=== PATIENT | female | born 1970 | race Caucasian/White ===

== ENCOUNTER 2017-02-26 09:35 | Observation (INO) | payer BC ==
--- NOTE | ~2017-02-26 | EHP ---
ER History and Physical [address] [place]. [address] NAME: XOCHITL HALE : 74 STATUS : ADM Brie PAT#: [id number] AGE: 46 ADM/REG DATE : 02/26/17 MR#: [id number] REPORT SERV DATE: 02/27/17 DICTATED BY: JANIYA CHRISTIAN DATE: 02/26/17 REPORT STATUS : Draft TRANSCRIBED BY: MODL DATE: 02/26/17 CHIEF COMPLAINT: Stroke-like symptoms. HISTORY OF PRESENT ILLNESS: The patient is a 46-year-old white female, who is here for abdominal pain with diagnosis of colitis with plans for admission, who was seen by earlier provider in the day. She has actually been seen by the Hospitalist Service, now has been fully admitted. When the nurse went to take her to her room, the patient was noted to be hyperventilating, unable to speak, had slurred speech, and left-sided facial droop. I was summoned to evaluate the patient. I have no baseline for her prior exam except for what is in the chart, which is notable for no neurologic deficits. Per the nurse, the patient has been fine up until this point. On exam, the patient had noted full left-sided weakness in both upper and lower extremities, left-sided facial droop, and had slurred speech. When distracted, her left arm did have resistance, but to extension and flexion. I immediately called a code stroke, although these symptoms does not seem to fit within an acute CVA. Once the code stroke was called, Dr. Melgoza, Neurology Service returned my phone call. We discussed this. My suspicion is that this is anxiety and psychogenic; however, we went ahead and proceeded with CVA with workup. The patient was transferred. A CTA of the brain as well as a CTA of the head and CTA of the neck were done, these were all unremarkable. Dr. Melgoza came and saw the patient, and agree that her exam is consistent with likely psychogenic behavior. She ordered an MRI on the time of this dictation. The patient had an MRI. The MRI is pending. Given the fact that she is admitted with colitis, the exam is not consistent with acute CVA and tPA was not given per Neurology's recommendations. Once the MRI returns, the patient will be transferred to floor and admitted. As above, neurology has seen the patient, who is following along. SANIYA/SHARIFA Janiya Chrsitian, DO / [id number] CC: MD Anushka Ambrose
--- NOTE | ~2017-02-26 | HP ---
History And Physical [facility] [id number] [place]. [address] NAME: XOCHITL HALE : 74 STATUS : ADM Brie PAT#: [id number] AGE: 46 ADM/REG DATE : 02/26/17 MR#: [id number] REPORT SERV DATE: 02/26/17 DICTATED BY: ALIYAH HERRERA DATE: 02/26/17 REPORT STATUS : Draft TRANSCRIBED BY: MODL DATE: 02/26/17 DATE OF ADMISSION: 02/26/2017 REASON FOR ADMISSION: Colitis. HISTORY OF PRESENT ILLNESS: This is a 46-year-old white female, who presents to the emergency room with increasing abdominal pain. It was causing doubling over. She does have a history of chronic pain due to disc disease in her neck. She had diarrhea for four or five days, began having lower abdominal pain yesterday and then followed by pure blood in her stool. She was noting bright red blood per rectum. There is a strong family history of colon cancer in her family. Her mother of colon cancer in her 50s. Insurance company sort of refused her to have a colonoscopy because she is not 52, Dr. Barragan, her primary care doctor in [place], has not pursued the avenue of additional risk factors. She previously saw Dr. Leblanc for chronic pain who did fluoroscopic injections in her neck. She is on the following medication: Albuterol inhaler as needed for shortness of breath and seasonal allergies, Goody's powder as needed for pain, Soma 350 mg p.o. at bedtime, diclofenac 50 mg p.o. b.i.d. for arthritic pain in her neck, estradiol 1 mg p.o. daily, meclizine 12.5 mg p.o. daily, phentermine 18.75 mg p.o. daily, Imitrex 100 mg p.o. p.r.n. migraine headaches and she takes less than one a month, trazodone 300 mg p.o. at bedtime. PAST MEDICAL HISTORY: Continued chronic neck pain in the past. She has not been hospitalized here at [facility] in the past. SOCIAL HISTORY: She is to her for 18 years, four children who are alive and well. She smokes a pack of cigarettes a day. She has raised in [facility], but does not go to latter day now. No alcohol or tobacco. She will smoke marijuana if offered. She previously worked at [employer] in [place], now works at [employer], a very physical job. FAMILY HISTORY: Her three brothers and one sister; one brother diabetes, another is . Her mother of colon cancer in her 50s. Her father had diabetes and all his uncles and brothers had diabetes as well. REVIEW OF SYSTEMS: Occasional headache, occasional migraine, stiff neck from the degenerative disk disease. No fever, chills, night sweats, melena, hematemesis, nausea, vomiting, or diarrhea. She did have a weight of 218 pounds and was told by Dr. Barragan that she need to lose weight. Therefore, she is taking the phentermine from Dr. Barragan to try to help her lose weight. She has not tried Pepto-Bismol or other medications for her colon. She says Pepto-Bismol does not work for her. She claims allergy to morphine that causes itching. History And Physical [address] [place]. [address] NAME: XOCHITL HALE : 74 STATUS : ADM Brie PAT#: [id number] AGE: 46 ADM/REG DATE : 02/26/17 MR#: [id number] REPORT SERV DATE: 02/26/17 DICTATED BY: ALIYAH HERRERA DATE: 02/26/17 REPORT STATUS : Draft TRANSCRIBED BY: SHARIFA DATE: 02/26/17 Her main complaint now is actually abdominal pain, but she is concerned about the bright red blood per rectum given her mother's history as well. The remainder of the review of systems is negative. PHYSICAL EXAMINATION: GENERAL: Young, mildly obese white female, in no acute distress. VITAL SIGNS: Blood pressure initially 139/91 with a heart rate of 61, respiratory rate 20, oxygen saturation 99%, temperature 98.3. HEENT: EOMI. Sclerae clear. Conjunctivae pink. NECK: No bruit without any JVD. CHEST: Clear to A and P. HEART: Regular S1, S2 without murmur, gallop, or click. BREASTS: Grossly without mass. ABDOMEN: Soft, tender diffusely mostly in the pelvic area in the left lower quadrant. Bowel sounds are positive and not hyperactive. EXTREMITIES: Had no edema. Distal pulses are intact at the dorsalis pedis and posterior tibial. NEUROLOGIC: She withdraws to plantar stimulation. Grab Hooker is equal and symmetric bilaterally. Coordination intact. She has no tremor. She is symmetric and equal neurologically bilaterally. SKIN: Without rash, ecchymosis, or bruising. LABORATORY DATA: The urinalysis was obtained that showed a specific gravity of 1.021, 7 epis, 4 whites, and 21 red blood cells per high-powered field. Urobilinogen was 2. CT scan of the abdomen and pelvis, noncontrast, was showing diffuse wall thickening involving the distal two-thirds of the descending colon, proximal sigmoid colon with surrounding edema consistent with localized colitis. Her BUN was 6, her creatinine was 7.5, glucose is 114. Otherwise, the CMP was normal with normal lipase. Her white count was 8.7, hemoglobin 16.6, hematocrit 47.8, platelets are 168,000. ASSESSMENT: 1. Acute abdominal pain. 2. Colitis. 3. Diarrhea secondary to colitis. 4. Vomiting secondary to generalized abdominal pain above. 5. History of chronic pain. She is tolerating the nonsteroidals. I am going to keep her on nonsteroidals for the anti-inflammatory property of them given that she says she cannot take prednisone because it makes her inflammation worse in her body and was told this by Dr. Leblanc. 6. Family history of colon cancer. She needs colonoscopy at any rate, but we will have to wait several weeks until the colitis is resolved to have a colonoscopy done and would have double benefit for her. 7. History of dizziness, on Antivert. 8. Obesity. She is losing weight now. History And Physical [address] [address] NAME: XOCHITL HALE : 74 STATUS : ADM Brie PAT#: [id number] AGE: 46 ADM/REG DATE : 02/26/17 MR#: [id number] REPORT SERV DATE: 02/26/17 DICTATED BY: ALIYAH HERRERA DATE: 02/26/17 REPORT STATUS : Draft TRANSCRIBED BY: MODEstefania DATE: 02/26/17 9. History of inflammation of her whole body. We will check sedimentation rate and CRP. PLAN: If the sedimentation rate and CRP are normal, perhaps Pepto-Bismol in volume sufficient to slow the diarrhea would be of benefit for her, I will change her IV metronidazole and IV Levaquin given to her by Dr. Guerra to oral. I will check stool cultures, add dicyclomine for abdominal cramping, and observe over the next 24 hours to see if the hemoglobin and hematocrit remain stable. DB/MODL Aliyah Herrera M.D. / [id number] CC: NATA BARRAGAN MD
--- NOTE | ~2017-02-26 | DS ---
Discharge Summary [facility] [address] [place] [address] NAME: XOCHITL ARVIZU : 74 STATUS : DIS Brie PAT#: [id number] AGE: 46 ADM/REG DATE : 02/26/17 MR#: [id number] REPORT SERV DATE: 04/15/17 DICTATED BY: RO RAPP DATE: 04/14/17 REPORT STATUS : Draft TRANSCRIBED BY: SHARIFA DATE: 04/14/17 ADMISSION DATE: 02/26/2017 DISCHARGE DATE: 02/27/2017 HISTORY: Ms. Arvizu is a 46-year-old female who presented to the emergency room with a complaint of increasing abdominal pain. For further details, please refer to H and P dictated by Dr. De Guzman on 02/26/2017. HOSPITAL COURSE: Upon presentation to the emergency room, given her complaint of abdominal pain, a CT scan of the abdomen and pelvis was obtained showing diffuse wall thickening involving the distant two third of the descending colon, proximal colon with surrounding edema consistent with localized colitis. GI was subsequently consulted. For further details, please refer to consultation note dictated by Dr. Foster on 02/27/2017. I saw the patient on 02/27/2017, and per GI evaluation, there was no need for urgent colonoscopy inpatient and plan was for a colonoscopy to be performed outpatient. I saw the patient on 02/27/2017; however, the patient subsequently signed out against medical advice, and I did not evaluate the patient again. DOMINGUEZ/SHARIFA Ro Rapp MD / [id number] CC: MD Anushka Ambrose
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
--- NOTE | ~2017-02-26 | CN ---
Consultation Report [facility] [address] [place]. [address] NAME: XOCHITL ARVIZU : 74 STATUS : ADM Brie PAT#: [id number] AGE: 46 ADM/REG DATE : 02/26/17 MR#: [id number] REPORT SERV DATE: 02/27/17 DICTATED BY: ROBBI FOSTER DATE: 02/27/17 REPORT STATUS : Draft TRANSCRIBED BY: MODL DATE: 02/27/17 DATE OF CONSULTATION: 02/27/2017 REASON FOR CONSULTATION: Rectal bleeding, colitis. HISTORY OF PRESENT ILLNESS: Ms. Arvizu is a 46-year-old white female, with history of chronic pain and family history of colon cancer, who presented to [facility] with abdominal pain and rectal bleeding. She reports, she passed significant amount of blood. Since she has been in the hospital, she has not had any rectal bleeding, although reports some mucousy-red discharge, has not had a bowel movement. No nausea or vomiting. No previous endoscopy. Does have a family history of colon cancer with first-degree relatives in their 50s to 60s. CBC was normal. CT scan showed some thickening of the distal transverse to sigmoid colon suggestive of colitis and she has been empirically started on Levaquin and Flagyl. PAST MEDICAL HISTORY: Chronic pain secondary to arthritis, joint disease. PAST SURGICAL HISTORY: No surgical history. FAMILY HISTORY: Colon cancer. SOCIAL HISTORY: Tobacco use. Smokes a pack per day. Denies any alcohol use. Admits to occasional marijuana use. MEDICATIONS: Reviewed. ALLERGIES: REVIEWED. PHYSICAL EXAMINATION: VITAL SIGNS: The patient is afebrile. Her vital signs are stable. GENERAL: The patient is awake, alert, oriented x3. Well developed, well nourished, in mild distress. She is tearful at this time. Seems to be somewhat anxious. HEENT: Atraumatic, normocephalic. Anicteric. Mucous membranes moist. Poor dentition. CARDIAC: S1, S2. CHEST: Clear. ABDOMEN: Soft, tender to palpation, mostly in the left abdomen without rebound, voluntary guarding. Bowel sounds normoactive. LABORATORY DATA: Reveal a normal CBC. CMP was reviewed. CT scan as dictated above. IMPRESSION AND PLAN: Left-sided colitis, uncomplicated. Continue Levaquin and Flagyl and supportive care with IV fluids. We will do a colonoscopy as an outpatient in six to eight weeks. Okay to advance diet to GI bland diet. Questions and concerns were addressed. Consultation Report [place] [address] [place]. [address] NAME: XOCHITL ARVIZU : 74 STATUS : ADM Brie PAT#: [id number] AGE: 46 ADM/REG DATE : 02/26/17 MR#: [id number] REPORT SERV DATE: 02/27/17 DICTATED BY: ROBBI FOSTER DATE: 02/27/17 REPORT STATUS : Draft TRANSCRIBED BY: MODL DATE: 02/27/17 CS/MODEstefania Robbi Foster MD / [id number] CC: MD Anushka Ambrose
[2017-02-26 08:38] LABS: BASOPHILS 0.2 %; BASOPHILS ABSOLUTE 0.02 10/3/uL (0.0-0.16); EOSINOPHILS 0.5 %; EOSINOPHILS ABSOLUTE 0.04 10/3/uL (0.0-0.53); ER CBC TAT 0 Hrs 05 Mins; HEMOGLOBIN 16.6 g/dL (12.0-16.0); IMMATURE GRANULOCYTES 0.2 %; IMMATURE GRANULOCYTES ABSOLUTE 0.02 10/3/uL (0.0-0.11); LYMPHOCYTES 25.7 %; LYMPHOCYTES ABSOLUTE 2.22 10/3/uL (0.67-4.30); MEAN CORPUS HGB CONC 34.7 g/dL (32.0-36.0); MEAN CORPUSCULAR HEMOGLOB 31.5 pg (26.0-34.0); MEAN CORPUSCULAR VOLUME 90.7 fL (80-100); MEAN PLATELET VOLUME 9.9 fL (9.2-13.0); MONOCYTES 5.9 %; MONOCYTES ABSOLUTE 0.51 10/3/uL (0.21-1.20); NEUTROPHILS 67.5 %; NEUTROPHILS ABSOLUTE 5.84 10/3/uL (2.02-8.40); PLATELET COUNT 168 10/3/uL (150-400); RED CELL COUNT 5.27 10/6/uL (4.0-5.6); WHITE BLOOD CELLS 8.7 10/3/uL (4.5-10.5)
[2017-02-26 08:39] LABS: HEMATOCRIT 47.8 % (36.0-48.0); MANUAL DIFF NO %
[2017-02-26 08:53] LABS: A/G RATIO 0.9 (0.7-1.9); ALBUMIN 3.7 G/DL (3.5-5.0); ALKALINE PHOSPHATASE 107 U/L (45-117); BUN (BLOOD UREA NITROGEN) 6 MG/DL (6-23); CALCIUM, SERUM 9.7 MG/DL (8.5-10.4); CHLORIDE, SERUM 105 MMOL/L (96-112); CO2 (CARBON DIOXIDE) 31 MMOL/L (24-34); CREATININE 0.75 MG/DL (0.55-1.02); GFR AFRICAN AMERICAN 112 ML/MIN (>=60); GFR NON AFRICAN AMERICAN 97 ML/MIN (>=60); GLUCOSE, SERUM 114 MG/DL (60-99); POTASSIUM, SERUM 3.6 MMOL/L (3.5-5.3); SGOT(AST) 14 U/L (5-40); SGPT(ALT) 15 U/L (5-65); SODIUM, SERUM 143 MMOL/L (135-148); TOTAL BILIRUBIN 0.5 MG/DL (0-1.2); TOTAL PROTEIN 7.7 G/DL (6.0-8.5)
[2017-02-26] MEDS ORDERED: SOMATAB PO (11:07)
[2017-02-26] MEDS ORDERED: TRAZODONE300 MG PO (11:07)
[2017-02-26] MEDS ORDERED: PHENTERMINE37.5 M1 PO (11:11)
[2017-02-26] MEDS ORDERED: ESTRACE1 MG PO (11:12)
[2017-02-26] MEDS ORDERED: VOLT50 PO (11:13)
[2017-02-26] MEDS ORDERED: MCZ125 PO (11:13)
[2017-02-26] MEDS ORDERED: IMITREX100 MG PO (11:13)
[2017-02-26] MEDS ORDERED: GOODY'S EX-STR1 EAC1 PO (11:14)
[2017-02-26] MEDS ORDERED: PROAIR HFA INH (11:15)
[2017-02-26 11:34] LABS: ASCORBIC ACID (UR NOT ORDER) NEG (NEG); BILIRUBIN, URINE NEGATIVE (NEG); ER URINALYSIS TAT 0 Hrs 10 Mins; KETONE, URINE NEGATIVE (NEG); LEUKOCYTE ESTERASE(NOT OR NEG (NEG); NITRITE (URINE) NEG (NEG); WBC (NOT ORDERED) (RFLEX) 4 (0-5)
[2017-02-26 18:45] LABS: INTERNATIONAL NORMAL RATI 1.2 UNITS (-); PARTIAL THROMBO TIME 26.7 SEC (22.5-37.2); PROTIME (NOT ORD) 14.7 SEC (12.0-14.5)
[2017-02-27 06:06] LABS: BASOPHILS 0.4 %; BASOPHILS ABSOLUTE 0.02 10/3/uL (0.0-0.16); EOSINOPHILS 1.3 %; EOSINOPHILS ABSOLUTE 0.07 10/3/uL (0.0-0.53); IMMATURE GRANULOCYTES 0.2 %; IMMATURE GRANULOCYTES ABSOLUTE 0.01 10/3/uL (0.0-0.11); LYMPHOCYTES 40.5 %; LYMPHOCYTES ABSOLUTE 2.16 10/3/uL (0.67-4.30); MEAN CORPUSCULAR HEMOGLOB 31.3 pg (26.0-34.0); MEAN CORPUSCULAR VOLUME 92.2 fL (80-100); MONOCYTES 6.8 %; MONOCYTES ABSOLUTE 0.36 10/3/uL (0.21-1.20); NEUTROPHILS 50.8 %; NEUTROPHILS ABSOLUTE 2.71 10/3/uL (2.02-8.40); PLATELET COUNT 130 10/3/uL (150-400); RBC DISTRIBUTION WIDTH 13.2 % (12.0-16.0); RED CELL COUNT 4.47 10/6/uL (4.0-5.6); WHITE BLOOD CELLS 5.3 10/3/uL (4.5-10.5)
[2017-02-27 06:07] LABS: HEMATOCRIT 41.2 % (36.0-48.0); MANUAL DIFF NO %
== END 2017-02-27 19:55 | disposition left against medical advice (07) ==
LOC: ER 09:35 → CDU1 14:08 → 5SO 14:52
PROVIDERS: Emergency Medicine; Hospitalist; Internal Medicine
DX: M19.90 Unspecified osteoarthritis, unspecified site (principal); E66.9 Obesity, unspecified; F41.9 Anxiety disorder, unspecified; G43.909 Migraine, unspecified, not intractable, without status migrainosus; F17.210 Nicotine dependence, cigarettes, uncomplicated; Z80.0 Family history of malignant neoplasm of digestive organs; Z79.899 Other long term (current) drug therapy; Z88.5 Allergy status to narcotic agent; Z88.1 Allergy status to other antibiotic agents; Z88.8 Allergy status to other drugs, medicaments and biological substances; Z90.710 Acquired absence of both cervix and uterus
CPT/HCPCS: 36415; 70450; 70496; 70498; 70551; 74176; 80053; 81001; 82272; 83690; 84484; 85025 ×2; 85610; 85730; 86850; 86900; 86901; 87045; 87046 ×5; 87328; 87329; 87493 ×2; 87899 ×2; 89055; 93005; 96365; 96368; 96372; 96375; 96376 ×2; 99285; J1170 ×2; J1956 ×2; J2405 ×2; Q9967; 82270; A9270-GY; G0378